=== PATIENT | male | born 1980 | race African-American/Black ===

== ENCOUNTER 2019-06-26 23:07 | Emergency (ER) | payer SELFPAY ==
[~2019-06-26] VITALS: Ht 167.6 cm; Wt 59.1 kg
[2019-06-26 23:18] VITALS: Ht 167.6 cm; Wt 59.1 kg
[2019-06-27] MEDS ORDERED: IBUPROFEN800 MG PO (00:01)
[2019-06-27 00:27] VITALS: BP 118/75
== END 2019-06-27 00:27 | disposition home or self-care (01) ==
LOC: D.ER 23:07
DX: S66.911A Strain of unspecified muscle, fascia and tendon at wrist and hand level, right hand, initial encounter (principal); X50.9XXA Other and unspecified overexertion or strenuous movements or postures, initial encounter; M77.9 Enthesopathy, unspecified

== ENCOUNTER 2020-05-26 11:28 | Emergency (ER) | payer SELFPAY ==
[~2020-05-26] VITALS: Ht 167.6 cm; Wt 59.1 kg
[~2020-05-26 11:28] MED LIST: IBUPROFEN800 MG PO
[2020-05-26 11:35] VITALS: Ht 167.6 cm; Wt 59.1 kg
[2020-05-26 12:11] LABS: BASOPHILS 0.4 % (0-2); EOSINOPHILS 11.5 % (0-7); HEMATOCRIT 48.3 % (42.0-54.0); HEMOGLOBIN 16.2 g/dL (13.5-17.5); IMMATURE GRANULOCYTES 0.2 % (0-5); LYMPHOCYTES 32.5 % (15-50); MCH 28.9 pg (26.0-34.0); MCHC 33.5 g/dL (31.0-37.0); MCV 86.1 fL (80.0-100.0); MEAN PLATELET VOLUME 9.2 fL (7.4-10.4); MONOCYTES 14.5 % (2-11); NEUTROPHILS 40.9 % (40-80); PLATELET COUNT 176 10x3/uL (130-400); RBC 5.61 10x6/uL (4.20-6.10); RDW 15.9 % (11.5-14.5); WBC 4.6 10x3/uL (4.8-10.8)
[2020-05-26 12:17] LABS: CALC OSMOLALITY 270 mosm/kg (275-300); CALCIUM 9.3 mg/dL (8.5-10.1); CARBON DIOXIDE 27.6 mmol/L (21.0-32.0); CHLORIDE - SERUM 102 mmol/L (98-107); CREATININE - SERUM 0.9 mg/dL (0.6-1.3); GLUCOSE 88 mg/dL (74-106); POTASSIUM - SERUM 3.9 mmol/L (3.5-5.1); SODIUM 137 mmol/L (136-145); UREA NITROGEN 8 mg/dL (7-18); eGFR NON AFRICAN AMERICAN > 90 mL/min (90-120)
[2020-05-26 12:24] LABS: ALBUMIN 4.5 g/dL (3.4-5.0); ALKALINE PHOSPHATASE 117 U/L (30-120); ALT (SGPT) 20 U/L (10-68); BILIRUBIN - TOTAL 0.62 mg/dL (0.2-1.3); PROTEIN - SERUM 8.3 g/dL (6.4-8.2)
[2020-05-26] MEDS ORDERED: AUVI-Q0.3 MG/0.3 IM (13:46)
[2020-05-26] MEDS ORDERED: MEDROL DOSE PACK4 MG PO (13:47)
[2020-05-26] MEDS ORDERED: ACETAMINOPHEN500 M1 PO (13:47)
[2020-05-26 14:04] VITALS: BP 138/72
== END 2020-05-26 14:06 | disposition home or self-care (01) ==
LOC: D.ER 11:28
PROVIDERS: Family Medicine
DX: T78.40XA Allergy, unspecified, initial encounter (principal)

== ENCOUNTER 2021-02-03 07:02 | Emergency (ER) | payer MEDICAID ==
[~2021-02-03] VITALS: Ht 167.6 cm; Wt 61.4 kg
[~2021-02-03 07:02] MED LIST changes: +ACETAMINOPHEN500 M1 PO; +AUVI-Q0.3 MG/0.3 IM; +MEDROL DOSE PACK4 MG PO
[2021-02-03 07:13] VITALS: BP 132/97; Ht 167.6 cm; Wt 61.4 kg
[2021-02-03 07:40] LABS: BASOPHILS 0.4 % (0-2); EOSINOPHILS 1.8 % (0-7); HEMATOCRIT 47.3 % (42.0-54.0); HEMOGLOBIN 15.5 g/dL (13.5-17.5); LYMPHOCYTES 11.9 % (15-50); MCH 27.6 pg (26.0-34.0); MCHC 32.8 g/dL (31.0-37.0); MCV 84.2 fL (80.0-100.0); MEAN PLATELET VOLUME 7.8 fL (7.4-10.4); MONOCYTES 15.1 % (2-11); NEUTROPHILS 70.8 % (40-80); PLATELET COUNT 209 10x3/uL (130-400); RBC 5.62 10x6/uL (4.20-6.10); RDW 14.5 % (11.5-14.5); WBC 10.5 10x3/uL (4.8-10.8)
[2021-02-03 07:43] LABS: CALC OSMOLALITY 274 mosm/kg (275-300); CALCIUM 9.2 mg/dL (8.5-10.1); CARBON DIOXIDE 26.6 mmol/L (21.0-32.0); CHLORIDE - SERUM 100 mmol/L (98-107); CREATININE - SERUM 1.1 mg/dL (0.6-1.3); POTASSIUM - SERUM 3.7 mmol/L (3.5-5.1); SODIUM 137 mmol/L (136-145); UREA NITROGEN 9 mg/dL (7-18); eGFR NON AFRICAN AMERICAN 79 mL/min (90-120)
[2021-02-03 07:45] LABS: GLUCOSE 137 mg/dL (74-106)
[2021-02-03 07:49] LABS: ALBUMIN 4.2 g/dL (3.4-5.0); ALKALINE PHOSPHATASE 120 U/L (30-120); ALT (SGPT) 25 U/L (10-68); BILIRUBIN - TOTAL 0.83 mg/dL (0.2-1.3); PROTEIN - SERUM 8.8 g/dL (6.4-8.2)
[2021-02-03 08:28] LABS: BILIRUBIN 2+ (NEGATIVE); KETONE MODERATE mg/dL (NEGATIVE); NITRITE NEGATIVE (NEGATIVE); UROBILINOGEN 4 mg/dL (< 2)
[2021-02-03 08:29] LABS: BACTERIA FEW HPF (NONE SEEN); SQUAMOUS EPITHELIAL 0-5 HPF (0-4)
[2021-02-03] MEDS ORDERED: CYCLOBENZAPRINE10 MG PO (08:44)
[2021-02-03] MEDS ORDERED: ACETAMINOPHEN500 M1 PO (08:44)
[2021-02-03] MEDS ORDERED: VIBRAMYCIN 100100 MG PO (08:44)
[2021-02-03] MEDS ORDERED: IBUPROFEN800 MG PO (08:44)
[2021-02-03] MEDS ORDERED: CIPRO500 MG PO (08:44)
== END 2021-02-03 09:35 | disposition home or self-care (01) ==
LOC: D.ER 07:02
PROVIDERS: Family Medicine
DX: N50.811 Right testicular pain (principal); N45.1 Epididymitis; N45.2 Orchitis